=== PATIENT | female | born 1985 | race Two or more races ===

== ENCOUNTER 2018-04-06 15:52 | Inpatient (IN) | payer OTHER ==
[~2018-04-06] VITALS: Ht 160 cm; Wt 106.6 kg
[2018-05-06] MEDS ORDERED: PRENATAL TABLE1 EAC2 PO (06:02)
[2018-05-09] MEDS ORDERED: PREPLUS CA-FE1 EACH PO (09:07)
[2018-05-09] MEDS ORDERED: NAPR500T14 PO (09:08)
== END 2018-05-09 12:15 | DRG 788 ==
LOC: RECOVERY 04-28 11:15 → OB/GYN 05-06 05:14 → LDR 05-06 05:14 → O/R 05-06 17:46 → OB/GYN 05-06 19:14 → LDR 05-07 11:15 → OB/GYN 05-09 12:15
PROVIDERS: Obstetrics & Gynecology
PROC: 3E0P7VZ Introduction of Hormone into Female Reproductive, Via Natural or Artificial Opening (ICD-10-PCS; 2018-05-06)
PROC: 3E033VJ Introduction of Other Hormone into Peripheral Vein, Percutaneous Approach (ICD-10-PCS; 2018-05-06)
PROC: 4A1HXCZ Monitoring of Products of Conception, Cardiac Rate, External Approach (ICD-10-PCS; 2018-05-06)
PROC: 10D00Z1 Extraction of Products of Conception, Low, Open Approach (ICD-10-PCS; principal; 2018-05-06 17:00)
DX: O61.0 Failed medical induction of labor (principal); Z3A.39 39 weeks gestation of pregnancy; Z37.0 Single live birth; Z22.330 Carrier of Group B streptococcus

== ENCOUNTER 2021-03-24 09:48 | Outpatient (CLI) | payer OTHER ==
[~2021-03-24 09:48] MED LIST: NAPR500T14 PO; PRENATAL TABLE1 EAC2 PO; PREPLUS CA-FE1 EACH PO
== END 2021-03-24 12:05 | disposition home or self-care (01) ==
LOC: PRENATAL 09:48
PROVIDERS: ATTEND Obstetrics & Gynecology Maternal & Fetal Medicine
DX: O35.0XX1 Maternal care for (suspected) central nervous system malformation in fetus, fetus 1 (principal); O35.3XX1 Maternal care for (suspected) damage to fetus from viral disease in mother, fetus 1; O98.512 Other viral diseases complicating pregnancy, second trimester; O09.512 Supervision of elderly primigravida, second trimester; O28.1 Abnormal biochemical finding on antenatal screening of mother; O99.212 Obesity complicating pregnancy, second trimester; O43.92 Unspecified placental disorder, second trimester; Z36.89 Encounter for other specified antenatal screening; Z3A.23 23 weeks gestation of pregnancy

== ENCOUNTER 2021-06-02 12:26 | Outpatient (CLI) | payer OTHER | END 2021-06-02 14:00 | disposition home or self-care (01) | LOC: PRENATAL 12:26 | PROVIDERS: ATTEND Obstetrics & Gynecology Maternal & Fetal Medicine | DX: O26.843 Uterine size-date discrepancy, third trimester (principal); O09.523 Supervision of elderly multigravida, third trimester; O28.1 Abnormal biochemical finding on antenatal screening of mother; O99.213 Obesity complicating pregnancy, third trimester; O43.93 Unspecified placental disorder, third trimester; Z36.89 Encounter for other specified antenatal screening; Z3A.34 34 weeks gestation of pregnancy ==

== ENCOUNTER 2021-07-15 08:26 | Inpatient (IN) | payer OTHER ==
[~2021-07-15] VITALS: Ht 160 cm; Wt 4.1 kg
== END 2021-07-24 12:44 | disposition home or self-care (01) | DRG 785 ==
LOC: LDR 07-21 01:01 → O/R 07-21 13:30 → SURG-SUITE 07-21 13:34 → OB/GYN 07-22 16:55 → SURG-SUITE 07-24 12:44
PROVIDERS: ADMIT Obstetrics & Gynecology; ATTEND Obstetrics & Gynecology
PROC: 10D00Z1 Extraction of Products of Conception, Low, Open Approach (ICD-10-PCS; principal; 2021-07-22)
PROC: 0UB70ZZ Excision of Bilateral Fallopian Tubes, Open Approach (ICD-10-PCS; 2021-07-22)
DX: O34.211 Maternal care for low transverse scar from previous cesarean delivery (principal); Z53.29 Procedure and treatment not carried out because of patient's decision for other reasons; Z30.2 Encounter for sterilization; Z3A.39 39 weeks gestation of pregnancy; Z37.0 Single live birth